=== PATIENT | female | born 1955 | race Caucasian/White ===

== ENCOUNTER 2017-02-16 09:29 | Outpatient (CLI) | payer OTHER ==
[~2017-02-16 09:29] MED LIST: ESTR0.3T3 PO; NEU100 PO; OMEP20CA10 PO
== END 2017-02-16 20:32 | disposition home or self-care (01) ==
LOC: SMA 09:29
PROVIDERS: ATTEND Internal Medicine
DX: N63 Unspecified lump in breast (principal); R92.1 Mammographic calcification found on diagnostic imaging of breast; Z98.82 Breast implant status
CPT/HCPCS: G0204

== ENCOUNTER 2019-02-06 12:40 | Outpatient (CLI) | payer BC | END 2019-02-06 20:38 | disposition home or self-care (01) | LOC: SMA 12:40 | PROVIDERS: ATTEND Internal Medicine | DX: Z12.31 Encounter for screening mammogram for malignant neoplasm of breast (principal) | CPT/HCPCS: 77067 ==

== ENCOUNTER 2022-07-14 12:55 | Outpatient (CLI) | payer BC, OTHER ==
[~2022-07-14 12:55] MED LIST changes: -OMEP20CA10 PO; +OMEP20CA15 PO
== END 2022-07-14 17:29 | disposition home or self-care (01) ==
LOC: SMA 12:55
PROVIDERS: ATTEND Specialist
DX: Z12.31 Encounter for screening mammogram for malignant neoplasm of breast (principal); N64.89 Other specified disorders of breast
CPT/HCPCS: 77067